=== PATIENT | male | born 1985 | race Caucasian/White ===

== ENCOUNTER 2016-10-04 05:13 | Inpatient (IN) | payer SELFPAY ==
[~2016-10-04] VITALS: Ht 182.9 cm; Wt 89.0 kg
[2016-10-04] MEDS ORDERED: VANCOMYCIN 1,700 MG in SODIUM CHLORIDE 0.9% 250 ML IV ONE (06:30)
[2016-10-04] MEDS ORDERED: VANCOMYCIN PMX 1GM/200ML 200 ML IV ONE ×2 (06:30→09:30)
[2016-10-04] MEDS ORDERED: AMPICILLIN/SULBACTAM 3 GM in SODIUM CHLORIDE 0.9% 100 ML IV ONE (06:30)
[2016-10-04] MEDS ORDERED: DIPH,PERTUSS(ACELL),TET VAC/PF 0.5 ML IM-VACC ONE ×2 (06:30→07:21)
[2016-10-04] MEDS ORDERED: SODIUM CHLORIDE FLUSH 10ML SYR IVF ONE (06:30)
[2016-10-04 06:39] LABS: HEMOGLOBIN 13.1 g/dL (13.7-18.0)
[2016-10-04 06:52] LABS: ASPARTATE AMINO TRANSFERASE 60 U/L (15-37); BLOOD UREA NITROGEN 15 mg/dL (7-18)
[2016-10-04] MEDS ORDERED: LORazepam 2 MG/ML, 1ML IVPush PRN (09:30)
[2016-10-04] MEDS ORDERED: ACETAMINOPHEN 325 MG TABLET PO PRN (09:30)
[2016-10-04] MEDS ORDERED: VANCOMYCIN PER PHARMACY MC PRN (09:30)
[2016-10-04] MEDS: SODIUM CHLORIDE 0.9% 1,000 ML IV SCH ×2 (10:09→16:19)
[2016-10-04 10:49] VITALS: BP 108/69
[2016-10-04] MEDS ORDERED: PHARMACOKINETIC MONITORING MC PRN (11:00)
[2016-10-04] MEDS ORDERED: PHARMACOKINETIC CONSULTATION MC ONE (11:00)
[2016-10-04] MEDS: MORPHINE SULFATE 4 MG/ML, 1ML IVPush PRN ×4 (11:25→21:35)
[2016-10-04] MEDS: NICOTINE 21 MG/24 HR PATCH.TD24 TD SCH (11:28)
[2016-10-04] MEDS: ENOXAPARIN 40 MG/0.4 ML SQ SCH (11:29)
[2016-10-04] MEDS: DIPHENHYDRAMINE 50 MG/ML, 1ML IVPush PRN ×2 (11:48→20:22)
[2016-10-04] MEDS: AMPICILLIN/SULBACTAM 3 GM in SODIUM CHLORIDE 0.9% 100 ML IV SCH ×2 (11:55→17:36)
[2016-10-04] MEDS ORDERED: GADOBUTROL 10 MMOL/10 ML PFS ONE (12:37)
[2016-10-04 14:36] VITALS: BP 134/74
[2016-10-04] MEDS: METHADONE 10 MG TABLET PO SCH ×2 (16:18→21:35)
[2016-10-04 18:48] VITALS: BP 114/67
[2016-10-04] MEDS: ONDANSETRON 2MG/ML, 2ML IVP PRN (20:21)
[2016-10-04] MEDS: VANCOMYCIN 1,700 MG in SODIUM CHLORIDE 0.9% 250 ML IV SCH (21:35)
[2016-10-04] MEDS ORDERED: VANCOMYCIN 1,700 MG in SODIUM CHLORIDE 0.9% 250 ML IV SCH (22:00)
[2016-10-05] MEDS: MORPHINE SULFATE 4 MG/ML, 1ML IVPush PRN ×6 (00:32→19:19)
[2016-10-05] MEDS: AMPICILLIN/SULBACTAM 3 GM in SODIUM CHLORIDE 0.9% 100 ML IV SCH ×4 (00:32→20:53)
[2016-10-05 01:17] VITALS: BP 119/70
[2016-10-05 04:11] LABS: HEMOGLOBIN 11.6 g/dL (13.7-18.0)
[2016-10-05 04:19] LABS: ASPARTATE AMINO TRANSFERASE 34 U/L (15-37); BLOOD UREA NITROGEN 12 mg/dL (7-18)
[2016-10-05 05:28] LABS: HIV 1&2 ANTIBODY SCREEN Nonreactive (Nonreactive); HIV-1 p24 ANTIGEN Nonreactive (Nonreactive)
[2016-10-05] MEDS: SODIUM CHLORIDE 0.9% 1,000 ML IV SCH ×2 (06:08→19:19)
[2016-10-05 07:31] VITALS: BP 125/77
[2016-10-05] MEDS: ENOXAPARIN 40 MG/0.4 ML SQ SCH ×2 (08:26→19:19)
[2016-10-05] MEDS: ONDANSETRON 2MG/ML, 2ML IVP PRN (08:31)
[2016-10-05] MEDS: NICOTINE 21 MG/24 HR PATCH.TD24 TD SCH (08:34)
[2016-10-05] MEDS: METHADONE 10 MG TABLET PO SCH ×3 (08:35→20:50)
[2016-10-05] MEDS ORDERED: MIDAZOLAM 1 MG/ML, 2ML ONE (08:54)
[2016-10-05] MEDS ORDERED: FENTANYL PF 250 MCG/5ML ONE (08:54)
[2016-10-05] MEDS ORDERED: PROPOFOL 10 MG/ML, 20ML ONE (09:12)
[2016-10-05] MEDS ORDERED: ONDANSETRON 2MG/ML, 2ML IVPush PRN (09:30)
[2016-10-05] MEDS ORDERED: OXYcodone 5 MG/5 ML ORAL.SOL UDC PO PRN (09:30)
[2016-10-05] MEDS ORDERED: FENTANYL PF 100 MCG/2ML ONE (09:44)
[2016-10-05] MEDS ORDERED: HYDROmorphone 2 MG/ML, 1ML ONE (09:44)
[2016-10-05] MEDS: FENTANYL PF 100 MCG/2ML IV PRN ×2 (09:45→09:56)
[2016-10-05] MEDS: HYDROmorphone 1 MG/ML, 1ML IV PRN ×4 (09:46→10:10)
[2016-10-05] MEDS ORDERED: OXYcodone 5 MG/5 ML ORAL.SOL UDC ONE (09:59)
[2016-10-05] MEDS: VANCOMYCIN 1,700 MG in SODIUM CHLORIDE 0.9% 250 ML IV SCH ×2 (11:17→22:03)
[2016-10-05 13:02] VITALS: BP 124/70
[2016-10-05] MEDS: HYDROcodone/APAP 5/325 TABLET PO PRN (17:57)
[2016-10-05 19:29] VITALS: BP 112/64
[2016-10-06] MEDS: AMPICILLIN/SULBACTAM 3 GM in SODIUM CHLORIDE 0.9% 100 ML IV SCH ×4 (02:32→20:37)
[2016-10-06 04:21] VITALS: BP 120/62
[2016-10-06] MEDS: MORPHINE SULFATE 4 MG/ML, 1ML IVPush PRN ×3 (04:33→19:09)
[2016-10-06] MEDS: ONDANSETRON 2MG/ML, 2ML IVP PRN ×2 (06:31→19:09)
[2016-10-06 07:36] VITALS: BP 121/75
[2016-10-06] MEDS: SODIUM CHLORIDE 0.9% 1,000 ML IV SCH ×2 (08:02→20:37)
[2016-10-06] MEDS: METHADONE 10 MG TABLET PO SCH ×3 (09:25→21:23)
[2016-10-06] MEDS: NICOTINE 21 MG/24 HR PATCH.TD24 TD SCH (09:26)
[2016-10-06] MEDS: VANCOMYCIN 1,700 MG in SODIUM CHLORIDE 0.9% 250 ML IV SCH ×2 (10:11→22:48)
[2016-10-06] MEDS: HYDROcodone/APAP 5/325 TABLET PO PRN (14:34)
[2016-10-06 15:15] VITALS: BP 122/68
[2016-10-06 19:20] VITALS: BP 111/63
[2016-10-06] MEDS: ENOXAPARIN 40 MG/0.4 ML SQ SCH (20:00)
[2016-10-07] MEDS: MORPHINE SULFATE 4 MG/ML, 1ML IVPush PRN ×4 (01:04→20:01)
[2016-10-07 01:08] VITALS: BP 115/68
[2016-10-07] MEDS: AMPICILLIN/SULBACTAM 3 GM in SODIUM CHLORIDE 0.9% 100 ML IV SCH ×4 (03:10→20:00)
[2016-10-07] MEDS: SODIUM CHLORIDE 0.9% 1,000 ML IV SCH ×2 (06:16→18:09)
[2016-10-07 07:35] VITALS: BP 109/69
[2016-10-07] MEDS: HYDROcodone/APAP 5/325 TABLET PO PRN ×3 (07:50→18:03)
[2016-10-07] MEDS: NICOTINE 21 MG/24 HR PATCH.TD24 TD SCH (08:51)
[2016-10-07] MEDS: METHADONE 10 MG TABLET PO SCH ×2 (10:08→16:54)
[2016-10-07] MEDS: VANCOMYCIN 1,700 MG in SODIUM CHLORIDE 0.9% 250 ML IV SCH ×2 (10:08→22:36)
[2016-10-07 13:23] VITALS: BP 123/72
[2016-10-07 19:04] VITALS: BP 119/70
[2016-10-07] MEDS: ENOXAPARIN 40 MG/0.4 ML SQ SCH (20:00)
[2016-10-08] MEDS: METHADONE 10 MG TABLET PO SCH ×2 (00:04→08:41)
[2016-10-08 00:19] VITALS: BP 117/67
[2016-10-08] MEDS: AMPICILLIN/SULBACTAM 3 GM in SODIUM CHLORIDE 0.9% 100 ML IV SCH ×4 (02:45→20:07)
[2016-10-08] MEDS: HYDROcodone/APAP 5/325 TABLET PO PRN ×4 (02:45→19:58)
[2016-10-08] MEDS: MORPHINE SULFATE 4 MG/ML, 1ML IVPush PRN ×2 (06:25→15:21)
[2016-10-08] MEDS: SODIUM CHLORIDE 0.9% 1,000 ML IV SCH ×2 (06:26→20:07)
[2016-10-08 06:59] VITALS: BP 112/67
[2016-10-08] MEDS: NICOTINE 21 MG/24 HR PATCH.TD24 TD SCH (08:42)
[2016-10-08] MEDS: VANCOMYCIN 1,700 MG in SODIUM CHLORIDE 0.9% 250 ML IV SCH ×2 (10:10→22:29)
[2016-10-08 13:20] VITALS: BP 119/69
[2016-10-08] MEDS: METHADONE 5 MG TABLET PO SCH (16:59)
[2016-10-08 19:18] VITALS: BP 129/75
[2016-10-08] MEDS: ENOXAPARIN 40 MG/0.4 ML SQ SCH (20:07)
[2016-10-08] MEDS: DIPHENHYDRAMINE 50 MG/ML, 1ML IVPush PRN (21:13)
[2016-10-09] MEDS: METHADONE 5 MG TABLET PO SCH ×3 (00:42→16:14)
[2016-10-09 00:51] VITALS: BP 109/67
[2016-10-09] MEDS: AMPICILLIN/SULBACTAM 3 GM in SODIUM CHLORIDE 0.9% 100 ML IV SCH ×4 (03:16→20:40)
[2016-10-09 08:01] VITALS: BP 106/60
[2016-10-09] MEDS: NICOTINE 21 MG/24 HR PATCH.TD24 TD SCH (08:11)
[2016-10-09] MEDS: SODIUM CHLORIDE 0.9% 1,000 ML IV SCH ×2 (08:11→22:32)
[2016-10-09] MEDS: HYDROcodone/APAP 5/325 TABLET PO PRN ×4 (08:11→22:32)
[2016-10-09] MEDS: ONDANSETRON 2MG/ML, 2ML IVP PRN ×2 (08:59→18:35)
[2016-10-09] MEDS: VANCOMYCIN 1,700 MG in SODIUM CHLORIDE 0.9% 250 ML IV SCH ×2 (10:49→22:32)
[2016-10-09 13:18] VITALS: BP 123/75
[2016-10-09] MEDS: METHOCARBAMOL 500 MG TABLET PO SCH (18:26)
[2016-10-09 19:26] VITALS: BP 122/69
[2016-10-09] MEDS: ENOXAPARIN 40 MG/0.4 ML SQ SCH (20:40)
[2016-10-09] MEDS: DIPHENHYDRAMINE 50 MG/ML, 1ML IVPush PRN (22:32)
[2016-10-10] MEDS: METHADONE 5 MG TABLET PO SCH ×2 (00:06→08:58)
[2016-10-10] MEDS: METHOCARBAMOL 500 MG TABLET PO SCH ×2 (00:06→08:58)
[2016-10-10] MEDS: AMPICILLIN/SULBACTAM 3 GM in SODIUM CHLORIDE 0.9% 100 ML IV SCH ×2 (03:11→08:57)
[2016-10-10 08:47] VITALS: BP 118/72
[2016-10-10] MEDS: NICOTINE 21 MG/24 HR PATCH.TD24 TD SCH (08:58)
[2016-10-11 15:06] LABS: HCV LOG10 3.117 (.); HEPATITIS C PCR QUANTITATION 1310 IU/mL (.)
== END 2016-10-10 10:13 | disposition left against medical advice (07) | DRG 579 ==
LOC: ED 08:20 → EDIP 08:22 → ED 08:32 → 3NE 10:29
PROVIDERS: ADMIT Hospitalist; ATTEND Internal Medicine
PROC: 02HV33Z Insertion of Infusion Device into Superior Vena Cava, Percutaneous Approach (ICD-10-PCS; principal; 2016-10-04)
PROC: B5181ZA Fluoroscopy of Superior Vena Cava using Low Osmolar Contrast, Guidance (ICD-10-PCS; 2016-10-04)
PROC: B548ZZA Ultrasonography of Superior Vena Cava, Guidance (ICD-10-PCS; 2016-10-04)
PROC: 0KBV0ZZ Excision of Right Foot Muscle, Open Approach (ICD-10-PCS; 2016-10-04)
DX: L03.115 Cellulitis of right lower limb (principal); E43 Unspecified severe protein-calorie malnutrition; E87.1 Hypo-osmolality and hyponatremia; L02.611 Cutaneous abscess of right foot; F11.23 Opioid dependence with withdrawal; Z53.21 Procedure and treatment not carried out due to patient leaving prior to being seen by health care provider; R74.0 Nonspecific elevation of levels of transaminase and lactic acid dehydrogenase [LDH]; F12.90 Cannabis use, unspecified, uncomplicated; B19.20 Unspecified viral hepatitis C without hepatic coma; Z23 Encounter for immunization; Z68.26 Body mass index [BMI] 26.0-26.9, adult; Z88.1 Allergy status to other antibiotic agents; Z72.0 Tobacco use
CPT/HCPCS: 36415; 36569; 76937; 77001; 80053; 80202; 83605; 83735; 84100; 84145; 85025; 85610; 86703; 86704; 86706; 86708; 86803; 87040; 87070; 87075; 87077; 87186; 87205; 87340; 87522; 87899; 87902; 90471; 90715; 93306; 96365; 96366; A9585; J0295; J1170; J1650; J2250; J2405; J2704; J3010; J3370; C1751; G0435; J1200; J2060; J7030; J7050

== ENCOUNTER 2016-12-14 01:50 | Emergency (ER) | payer SELFPAY ==
[~2016-12-14] VITALS: Ht 182.9 cm; Wt 86.3 kg
[2016-12-14 02:16] VITALS: BP 159/90
== END 2016-12-14 02:46 | disposition home or self-care (01) ==
LOC: ED 02:30
DX: L03.115 Cellulitis of right lower limb (principal)
CPT/HCPCS: 99283

== ENCOUNTER 2017-02-18 03:17 | Emergency (ER) | payer OTHER ==
[~2017-02-18] VITALS: Ht 182.9 cm; Wt 80.0 kg
[2017-02-18 03:21] VITALS: BP 116/74
== END 2017-02-18 04:45 | disposition home or self-care (01) ==
LOC: ED 04:37
DX: S94.91XA Injury of unspecified nerve at ankle and foot level, right leg, initial encounter (principal); F17.200 Nicotine dependence, unspecified, uncomplicated; Z88.1 Allergy status to other antibiotic agents; X58.XXXA Exposure to other specified factors, initial encounter; Y93.89 Activity, other specified; Y92.89 Other specified places as the place of occurrence of the external cause; Y99.8 Other external cause status
CPT/HCPCS: 99284

== ENCOUNTER 2017-02-18 12:26 | Emergency (ER) | payer OTHER ==
[~2017-02-18] VITALS: Ht 182.9 cm; Wt 77.7 kg
[2017-02-18 12:45] VITALS: BP 120/79
== END 2017-02-18 13:31 | disposition home or self-care (01) ==
LOC: ED 13:25
DX: G89.29 Other chronic pain (principal); M79.671 Pain in right foot; F11.10 Opioid abuse, uncomplicated
CPT/HCPCS: 99283

== ENCOUNTER 2017-05-11 20:12 | Inpatient (IN) | payer OTHER ==
[~2017-05-11] VITALS: Ht 182.9 cm; Wt 81.2 kg
[2017-05-11] MEDS ORDERED: KETOROLAC 30 MG/1 ML ONE (20:47)
[2017-05-11] MEDS ORDERED: ONDANSETRON 2MG/ML, 2ML ONE (20:47)
[2017-05-11] MEDS ORDERED: ONDANSETRON 2MG/ML, 2ML IVPush ONE (21:00)
[2017-05-11] MEDS ORDERED: KETOROLAC 30 MG/1 ML IVPush ONE (21:00)
[2017-05-11] MEDS ORDERED: DIPH,PERTUSS(ACELL),TET VAC/PF 0.5 ML IM-VACC ONE (21:04)
[2017-05-11 21:06] LABS: ASPARTATE AMINO TRANSFERASE 115 U/L (15-37); BLOOD UREA NITROGEN 10 mg/dL (7-18)
[2017-05-11 21:20] LABS: HEMATOCRIT 46.3 % (39.2-51.8); HEMOGLOBIN 15.7 g/dL (13.7-18.0); WHITE BLOOD COUNT 15.5 x10^3/uL (3.4-10)
[2017-05-11] MEDS ORDERED: RANI150T4 PO (21:54)
[2017-05-11] MEDS ORDERED: OLAN10TA9 PO (21:54)
[2017-05-11] MEDS ORDERED: PIPERACILLIN/TAZO/PMX 3.375GM 50 ML ONE (22:08)
[2017-05-11] MEDS ORDERED: SODIUM CHLORIDE 0.9% 1,000 ML IV ONE (22:14)
[2017-05-11] MEDS ORDERED: PIPERACILLIN/TAZO/PMX 3.375GM 50 ML IVPB ONE (22:30)
[2017-05-11] MEDS ORDERED: ONDANSETRON 2MG/ML, 2ML IVPush PRN (22:30)
[2017-05-11] MEDS ORDERED: MORPHINE SULFATE 4 MG/ML, 1ML IVPush PRN (22:30)
[2017-05-11] MEDS ORDERED: BISACODYL 10 MG SUPP PR PRN (23:00)
[2017-05-11 23:34] VITALS: BP 119/75
[2017-05-12] MEDS: morphine SULFATE 10 MG/ML, 1ML IVPush PRN ×7 (00:15→23:11)
[2017-05-12] MEDS: HEPARIN 5,000 UNITS/ML, 1ML SQ SCH ×2 (00:15→08:22)
[2017-05-12] MEDS: SODIUM CHLORIDE 0.9% 1,000 ML IV SCH ×4 (00:16→22:00)
[2017-05-12 02:58] VITALS: BP 107/70
[2017-05-12] MEDS: PIPERACILLIN/TAZO/PMX 3.375GM 50 ML IV SCH ×3 (03:48→16:00)
[2017-05-12 04:59] LABS: HEMATOCRIT 39.4 % (39.2-51.8); HEMOGLOBIN 13.6 g/dL (13.7-18.0); WHITE BLOOD COUNT 12.6 x10^3/uL (3.4-10)
[2017-05-12 05:08] LABS: BLOOD UREA NITROGEN 10 mg/dL (7-18)
[2017-05-12 05:11] LABS: ASPARTATE AMINO TRANSFERASE 158 U/L (15-37)
[2017-05-12 08:10] VITALS: BP 111/66
[2017-05-12] MEDS: ACETAMINOPHEN 325 MG TABLET PO PRN (11:43)
[2017-05-12] MEDS: DIPHENHYDRAMINE 50 MG/ML, 1ML IVPush PRN ×2 (12:38→20:58)
[2017-05-12 13:40] VITALS: BP 106/63
[2017-05-12] MEDS ORDERED: FENTANYL PF 100 MCG/2ML ONE ×4 (15:39→18:07)
[2017-05-12] MEDS ORDERED: MIDAZOLAM 1 MG/ML, 2ML ONE (15:39)
[2017-05-12] MEDS ORDERED: PROPOFOL 10 MG/ML, 20ML ONE (15:41)
[2017-05-12] MEDS ORDERED: ROCURONIUM 10 MG/ML,10ML ONE (15:41)
[2017-05-12] MEDS ORDERED: NEOSTIGMINE 1 MG/ML, 10ML ONE (16:06)
[2017-05-12] MEDS ORDERED: BUPIVACAINE/PF 0.5% ONE (16:17)
[2017-05-12] MEDS ORDERED: OXYcodone 5 MG/5 ML ORAL.SOL UDC PO PRN (16:30)
[2017-05-12] MEDS ORDERED: PROMETHAZINE 25 MG/ML, 1ML IV PRN (16:30)
[2017-05-12] MEDS ORDERED: ONDANSETRON 2MG/ML, 2ML IVPush PRN (16:30)
[2017-05-12] MEDS ORDERED: MEPERIDINE/PF 25MG/0.5ML IVPush PRN (16:30)
[2017-05-12] MEDS ORDERED: HYDROmorphone 1 MG/ML, 1ML IV PRN (16:30)
[2017-05-12] MEDS ORDERED: ACETAMINOPHEN 325 MG TABLET PO PRN (16:30)
[2017-05-12] MEDS ORDERED: PIPERACILLIN/TAZO/PMX 3.375GM 50 ML ONE (16:35)
[2017-05-12] MEDS ORDERED: GLYCOPYRROLATE 0.2MG/1ML, 5ML ONE (17:40)
[2017-05-12] MEDS ORDERED: ACETAMINOPHEN 650 MG/20.3 ML UDC ONE (18:07)
[2017-05-12] MEDS ORDERED: OXYcodone 5 MG/5 ML ORAL.SOL UDC ONE (18:08)
[2017-05-12] MEDS: FENTANYL PF 100 MCG/2ML IV PRN ×2 (18:10→18:20)
[2017-05-12] MEDS ORDERED: MEPERIDINE/PF 25MG/0.5ML ONE (18:21)
[2017-05-12] MEDS ORDERED: HYDROmorphone 1 MG/ML, 1ML ONE (18:21)
[2017-05-12 19:55] VITALS: BP 124/77
[2017-05-12 23:55] VITALS: BP 110/57
[2017-05-13] MEDS: morphine SULFATE 10 MG/ML, 1ML IVPush PRN ×8 (01:56→23:12)
[2017-05-13 02:20] VITALS: BP 104/66
[2017-05-13] MEDS: SODIUM CHLORIDE 0.9% 1,000 ML IV SCH ×2 (06:19→21:38)
[2017-05-13 07:49] LABS: BLOOD UREA NITROGEN 8 mg/dL (7-18)
[2017-05-13 07:52] LABS: ASPARTATE AMINO TRANSFERASE 54 U/L (15-37); HEMATOCRIT 35.4 % (39.2-51.8); HEMOGLOBIN 11.9 g/dL (13.7-18.0); WHITE BLOOD COUNT 10.6 x10^3/uL (3.4-10)
[2017-05-13 07:57] VITALS: BP 124/72
[2017-05-13] MEDS: ACETAMINOPHEN 325 MG TABLET PO PRN ×2 (08:43→23:12)
[2017-05-13 14:48] VITALS: BP 117/78
[2017-05-13 18:55] VITALS: BP 152/73
[2017-05-14 01:43] VITALS: BP 114/71
[2017-05-14] MEDS: morphine SULFATE 10 MG/ML, 1ML IVPush PRN ×3 (03:04→19:59)
[2017-05-14 05:58] LABS: HEMATOCRIT 38.1 % (39.2-51.8); HEMOGLOBIN 12.7 g/dL (13.7-18.0); WHITE BLOOD COUNT 9.8 x10^3/uL (3.4-10)
[2017-05-14 06:07] LABS: BLOOD UREA NITROGEN 4 mg/dL (7-18)
[2017-05-14 06:10] LABS: ASPARTATE AMINO TRANSFERASE 45 U/L (15-37)
[2017-05-14 06:43] VITALS: BP 116/74
[2017-05-14] MEDS: ACETAMINOPHEN 325 MG TABLET PO PRN ×2 (07:32→17:18)
[2017-05-14] MEDS ORDERED: BISACODYL 5 MG EC TABLET PO PRN (09:30)
[2017-05-14] MEDS: SODIUM CHLORIDE 0.9% 1,000 ML IV SCH (11:24)
[2017-05-14 14:16] VITALS: BP 115/74
[2017-05-14 19:44] VITALS: BP 117/79
[2017-05-15 02:00] VITALS: BP 119/75
[2017-05-15] MEDS: SODIUM CHLORIDE 0.9% 1,000 ML IV SCH ×2 (02:30→16:16)
[2017-05-15] MEDS: morphine SULFATE 10 MG/ML, 1ML IVPush PRN ×2 (03:33→05:59)
[2017-05-15 04:55] LABS: HEMATOCRIT 39.4 % (39.2-51.8); HEMOGLOBIN 13.1 g/dL (13.7-18.0); WHITE BLOOD COUNT 8.1 x10^3/uL (3.4-10)
[2017-05-15 05:02] LABS: BLOOD UREA NITROGEN 7 mg/dL (7-18)
[2017-05-15 05:10] LABS: ASPARTATE AMINO TRANSFERASE 43 U/L (15-37)
[2017-05-15 07:50] VITALS: BP 123/71
[2017-05-15] MEDS: ACETAMINOPHEN 325 MG TABLET PO PRN ×3 (10:01→22:07)
[2017-05-15] MEDS: DIPHENHYDRAMINE 50 MG/ML, 1ML IVPush PRN ×4 (10:01→22:07)
[2017-05-15 14:47] VITALS: BP 130/84
[2017-05-15 20:30] VITALS: BP 133/90
[2017-05-16 02:53] VITALS: BP 140/87
[2017-05-16] MEDS: ACETAMINOPHEN 325 MG TABLET PO PRN ×2 (03:57→08:19)
[2017-05-16] MEDS: DIPHENHYDRAMINE 50 MG/ML, 1ML IVPush PRN ×3 (03:57→16:18)
[2017-05-16] MEDS: SODIUM CHLORIDE 0.9% 1,000 ML IV SCH ×2 (04:01→17:32)
[2017-05-16 04:31] LABS: HEMATOCRIT 39.6 % (39.2-51.8); HEMOGLOBIN 13.6 g/dL (13.7-18.0); WHITE BLOOD COUNT 10.5 x10^3/uL (3.4-10)
[2017-05-16 04:44] LABS: BLOOD UREA NITROGEN 9 mg/dL (7-18)
[2017-05-16 07:30] VITALS: BP 148/89
[2017-05-16] MEDS: morphine SULFATE 10 MG/ML, 1ML IVPush PRN ×6 (10:30→22:28)
[2017-05-16 12:54] VITALS: BP 130/91
[2017-05-16] MEDS: ONDANSETRON 2MG/ML, 2ML IVPush PRN (17:01)
[2017-05-16 20:04] VITALS: BP 146/91
[2017-05-16] MEDS ORDERED: BISACODYL 10 MG SUPP PR PRN (20:30)
[2017-05-17] MEDS: morphine SULFATE 10 MG/ML, 1ML IVPush PRN ×5 (00:34→09:54)
[2017-05-17] MEDS: DIPHENHYDRAMINE 50 MG/ML, 1ML IVPush PRN (00:37)
[2017-05-17 02:08] VITALS: BP 141/88
[2017-05-17 04:36] LABS: HEMATOCRIT 44.6 % (39.2-51.8); WHITE BLOOD COUNT 27.1 x10^3/uL (3.4-10)
[2017-05-17 04:47] LABS: BLOOD UREA NITROGEN 13 mg/dL (7-18)
[2017-05-17 04:50] LABS: ASPARTATE AMINO TRANSFERASE 34 U/L (15-37)
[2017-05-17 07:06] VITALS: BP 135/87
[2017-05-17] MEDS: SODIUM CHLORIDE 0.9% 1,000 ML IV SCH ×2 (07:55→23:23)
[2017-05-17] MEDS ORDERED: ROCURONIUM 10 MG/ML,10ML ONE (10:56)
[2017-05-17] MEDS ORDERED: PROPOFOL 10 MG/ML, 20ML ONE (10:56)
[2017-05-17] MEDS ORDERED: SUCCINYLCHOLINE 20 MG/ML, 10ML ONE (10:56)
[2017-05-17] MEDS ORDERED: FENTANYL PF 100 MCG/2ML ONE ×2 (10:56→11:12)
[2017-05-17] MEDS ORDERED: MIDAZOLAM 1 MG/ML, 2ML ONE (10:56)
[2017-05-17] MEDS ORDERED: ONDANSETRON 2MG/ML, 2ML ONE ×2 (10:58)
[2017-05-17] MEDS ORDERED: DEXAMETHASONE 4 MG/ML, 1ML ONE ×2 (10:58)
[2017-05-17] MEDS ORDERED: LIDOCAINE GEL 2%, 5ML ONE (10:59)
[2017-05-17] MEDS ORDERED: METRONIDAZOLE PMX 500MG/100ML 100 ML ONE (11:08)
[2017-05-17] MEDS ORDERED: CIPROFLOXACIN/PMX 400MG/200ML 200 ML ONE (11:08)
[2017-05-17] MEDS ORDERED: LABETALOL 5MG/ML, 20ML IV PRN (11:30)
[2017-05-17] MEDS ORDERED: HYDROmorphone 1 MG/ML, 1ML IV PRN (11:30)
[2017-05-17] MEDS ORDERED: ONDANSETRON 2MG/ML, 2ML IVPush PRN (11:30)
[2017-05-17] MEDS ORDERED: hydrALAzine 20 MG/ML, 1ML IV PRN (11:30)
[2017-05-17] MEDS ORDERED: ALBUTEROL SULFATE 2.5 MG/3 ML NPPB PRN (11:30)
[2017-05-17] MEDS ORDERED: PROMETHAZINE 25 MG/ML, 1ML IV PRN (11:30)
[2017-05-17] MEDS ORDERED: OXYcodone 5 MG/5 ML ORAL.SOL UDC PO PRN (11:30)
[2017-05-17] MEDS ORDERED: FENTANYL PF 100 MCG/2ML IV PRN (11:30)
[2017-05-17] MEDS ORDERED: MEPERIDINE/PF 25MG/0.5ML IVPush PRN (11:30)
[2017-05-17] MEDS ORDERED: MIDAZOLAM 1 MG/ML, 2ML IV PRN (11:30)
[2017-05-17] MEDS ORDERED: KETOROLAC 30 MG/1 ML ONE (11:32)
[2017-05-17] MEDS ORDERED: OMNIPAQUE 350 MG/ML, 50 ML BOTTLE ONE (11:53)
[2017-05-17] MEDS ORDERED: LACTATED RINGERS 1,000 ML IVBOLUS ONE (12:30)
[2017-05-17 13:13] VITALS: BP 160/89
[2017-05-17] MEDS: ACETAMINOPHEN 325 MG TABLET PO PRN (17:28)
[2017-05-17 19:26] VITALS: BP 132/64
[2017-05-17] MEDS: OXYcodone IR 5MG TABLET PO PRN (20:24)
[2017-05-18 01:24] VITALS: BP 126/76
[2017-05-18] MEDS: OXYcodone IR 5MG TABLET PO PRN ×2 (02:26→11:18)
[2017-05-18] MEDS: HYDROmorphone 1 MG/ML, 1ML IV PRN ×7 (05:21→23:42)
[2017-05-18 05:53] LABS: BLOOD UREA NITROGEN 25 mg/dL (7-18)
[2017-05-18 05:59] LABS: HEMATOCRIT 36.5 % (39.2-51.8); HEMOGLOBIN 12.2 g/dL (13.7-18.0); WHITE BLOOD COUNT 28.9 x10^3/uL (3.4-10)
[2017-05-18 08:05] VITALS: BP 116/70
[2017-05-18] MEDS: METRONIDAZOLE PMX 500MG/100ML 100 ML IV SCH ×2 (10:16→17:41)
[2017-05-18] MEDS: SODIUM CHLORIDE 0.9% 1,000 ML IV SCH (10:16)
[2017-05-18] MEDS: CIPROFLOXACIN/PMX 400MG/200ML 200 ML IV SCH ×2 (11:22→21:44)
[2017-05-18] MEDS ORDERED: HYDROmorphone 1 MG/ML, 1ML IV PRN (12:00)
[2017-05-18 14:32] VITALS: BP 118/73
[2017-05-18 19:17] VITALS: BP 114/66
[2017-05-19 00:58] VITALS: BP 107/60
[2017-05-19] MEDS: SODIUM CHLORIDE 0.9% 1,000 ML IV SCH ×2 (01:01→09:24)
[2017-05-19] MEDS: HYDROmorphone 1 MG/ML, 1ML IV PRN ×11 (01:42→22:41)
[2017-05-19] MEDS: METRONIDAZOLE PMX 500MG/100ML 100 ML IV SCH ×3 (02:25→18:12)
[2017-05-19] MEDS: OXYcodone IR 5MG TABLET PO PRN (04:47)
[2017-05-19] MEDS ORDERED: BUPIVACAINE/PF 0.5% ONE (06:34)
[2017-05-19] MEDS ORDERED: EPINEPHRINE 1 MG/ML, 1ML ONE (06:34)
[2017-05-19] MEDS ORDERED: METHADONE 5 MG TABLET PO SCH (07:00)
[2017-05-19 07:08] VITALS: BP 122/72
[2017-05-19 07:36] LABS: HEMATOCRIT 31.8 % (39.2-51.8); HEMOGLOBIN 10.6 g/dL (13.7-18.0); WHITE BLOOD COUNT 20.9 x10^3/uL (3.4-10)
[2017-05-19 07:47] LABS: BLOOD UREA NITROGEN 20 mg/dL (7-18)
[2017-05-19] MEDS: CIPROFLOXACIN/PMX 400MG/200ML 200 ML IV SCH ×2 (10:57→22:12)
[2017-05-19 12:54] VITALS: BP 126/84
[2017-05-19] MEDS ORDERED: FENTANYL PF 250 MCG/5ML ONE ×2 (14:37→15:01)
[2017-05-19] MEDS ORDERED: MIDAZOLAM 1 MG/ML, 2ML ONE (14:37)
[2017-05-19] MEDS ORDERED: LORazepam 2 MG/ML, 1ML IVPush PRN (15:30)
[2017-05-19] MEDS ORDERED: ONDANSETRON 2MG/ML, 2ML IVPush PRN (15:30)
[2017-05-19] MEDS ORDERED: EPHEDRINE 50 MG/ML, 1ML IVPush PRN (15:30)
[2017-05-19] MEDS ORDERED: MIDAZOLAM 1 MG/ML, 2ML IV PRN (15:30)
[2017-05-19] MEDS ORDERED: LABETALOL 5MG/ML, 20ML IV PRN (15:30)
[2017-05-19] MEDS ORDERED: PROMETHAZINE 25 MG/ML, 1ML IV PRN (15:30)
[2017-05-19] MEDS ORDERED: OXYcodone 5 MG/5 ML ORAL.SOL UDC PO PRN (15:30)
[2017-05-19] MEDS ORDERED: FENTANYL PF 100 MCG/2ML IV PRN (15:30)
[2017-05-19] MEDS ORDERED: FENTANYL PF 100 MCG/2ML ONE (15:54)
[2017-05-19] MEDS ORDERED: HYDROmorphone 2 MG/ML, 1ML ONE (15:54)
[2017-05-19] MEDS ORDERED: METHADONE 10 MG TABLET ONE (17:47)
[2017-05-19] MEDS: METHADONE 10 MG TABLET PO SCH (18:12)
[2017-05-19 19:21] VITALS: BP 127/77
[2017-05-19 21:05] VITALS: BP 134/77
[2017-05-20] MEDS: METHADONE 10 MG TABLET PO SCH ×4 (01:10→18:36)
[2017-05-20] MEDS: SODIUM CHLORIDE 0.9% 1,000 ML IV SCH ×2 (01:12→13:28)
[2017-05-20] MEDS: METRONIDAZOLE PMX 500MG/100ML 100 ML IV SCH ×3 (02:05→19:37)
[2017-05-20] MEDS: HYDROmorphone 1 MG/ML, 1ML IV PRN ×7 (02:10→21:52)
[2017-05-20 02:15] VITALS: BP 122/77
[2017-05-20 06:24] LABS: HEMATOCRIT 27.4 % (39.2-51.8); HEMOGLOBIN 9.2 g/dL (13.7-18.0); WHITE BLOOD COUNT 17.4 x10^3/uL (3.4-10)
[2017-05-20 06:37] LABS: BLOOD UREA NITROGEN 12 mg/dL (7-18)
[2017-05-20 06:46] VITALS: BP 118/68
[2017-05-20] MEDS ORDERED: VANCOMYCIN PER PHARMACY MC PRN (11:00)
[2017-05-20] MEDS ORDERED: PHARMACOKINETIC MONITORING MC PRN (11:30)
[2017-05-20] MEDS ORDERED: PHARMACOKINETIC CONSULTATION MC ONE (11:30)
[2017-05-20 13:05] VITALS: BP 124/73
[2017-05-20] MEDS: CIPROFLOXACIN/PMX 400MG/200ML 200 ML IV SCH ×2 (13:28→21:51)
[2017-05-20] MEDS: VANCOMYCIN 1,600 MG in SODIUM CHLORIDE 0.9% 250 ML IV SCH (14:42)
[2017-05-20] MEDS: DIPHENHYDRAMINE 50 MG/ML, 1ML IVPush PRN (17:15)
[2017-05-20 19:10] VITALS: BP 114/67
[2017-05-21] MEDS ORDERED: HYDROCORTISONE CRM 1%, 30GM TP PRN (00:30)
[2017-05-21] MEDS: HYDROmorphone 1 MG/ML, 1ML IV PRN ×7 (00:54→20:55)
[2017-05-21] MEDS: METHADONE 10 MG TABLET PO SCH ×4 (01:38→19:59)
[2017-05-21] MEDS: DIPHENHYDRAMINE 50 MG/ML, 1ML IVPush PRN ×2 (02:32→15:42)
[2017-05-21] MEDS: VANCOMYCIN 1,600 MG in SODIUM CHLORIDE 0.9% 250 ML IV SCH (02:32)
[2017-05-21] MEDS: SODIUM CHLORIDE 0.9% 1,000 ML IV SCH ×3 (02:33→20:55)
[2017-05-21 03:45] VITALS: BP 112/67
[2017-05-21] MEDS: METRONIDAZOLE PMX 500MG/100ML 100 ML IV SCH ×3 (04:31→20:54)
[2017-05-21 05:06] LABS: BLOOD UREA NITROGEN 11 mg/dL (7-18)
[2017-05-21 05:14] LABS: ASPARTATE AMINO TRANSFERASE 19 U/L (15-37)
[2017-05-21 05:18] LABS: HEMATOCRIT 27.6 % (39.2-51.8); HEMOGLOBIN 9.4 g/dL (13.7-18.0)
[2017-05-21 06:53] VITALS: BP 123/78
[2017-05-21] MEDS: CIPROFLOXACIN/PMX 400MG/200ML 200 ML IV SCH ×2 (10:06→21:55)
[2017-05-21] MEDS: DOCUSATE 100 MG CAPSULE PO SCH ×2 (11:30→19:59)
[2017-05-21] MEDS: LINEZOLID PMX 600MG/300ML 300 ML IV SCH (12:10)
[2017-05-21 14:31] VITALS: BP 128/82
[2017-05-21 19:02] VITALS: BP 142/81
[2017-05-22] MEDS: LINEZOLID PMX 600MG/300ML 300 ML IV SCH ×2 (00:06→18:40)
[2017-05-22] MEDS: HYDROmorphone 1 MG/ML, 1ML IV PRN ×6 (00:06→22:25)
[2017-05-22] MEDS: METHADONE 10 MG TABLET PO SCH ×4 (01:23→21:08)
[2017-05-22 01:45] VITALS: BP 119/63
[2017-05-22 05:47] LABS: HEMATOCRIT 32.1 % (39.2-51.8); HEMOGLOBIN 10.5 g/dL (13.7-18.0); WHITE BLOOD COUNT 20.4 x10^3/uL (3.4-10)
[2017-05-22] MEDS: METRONIDAZOLE PMX 500MG/100ML 100 ML IV SCH (05:49)
[2017-05-22 05:58] LABS: BLOOD UREA NITROGEN 6 mg/dL (7-18)
[2017-05-22 06:01] LABS: ASPARTATE AMINO TRANSFERASE 24 U/L (15-37)
[2017-05-22 06:46] VITALS: BP 122/69
[2017-05-22] MEDS: DOCUSATE 100 MG CAPSULE PO SCH ×2 (09:39→22:25)
[2017-05-22] MEDS: CIPROFLOXACIN/PMX 400MG/200ML 200 ML IV SCH (10:35)
[2017-05-22] MEDS ORDERED: BISACODYL 10 MG SUPP PR ONE (11:30)
[2017-05-22 12:51] VITALS: BP 116/74
[2017-05-22] MEDS ORDERED: MEROPENEM 1 GM in SODIUM CHLORIDE 0.9% 100 ML IV SCH (13:30)
[2017-05-22] MEDS ORDERED: LIDOCAINE 2%, 20ML ONE (14:29)
[2017-05-22] MEDS: OXYcodone IR 5MG TABLET PO PRN (14:40)
[2017-05-22 16:11] LABS: DILUTION 1
[2017-05-22] MEDS ORDERED: PINK LADY ENEMA 1,000 ML PR ONE (16:30)
[2017-05-22] MEDS: ENOXAPARIN 40 MG/0.4 ML SQ SCH (18:54)
[2017-05-22 19:48] VITALS: BP 109/68
[2017-05-22] MEDS: MEROPENEM 1 GM in SODIUM CHLORIDE 0.9% 50 ML IV SCH (21:00)
[2017-05-23] MEDS: SODIUM CHLORIDE 0.9% 1,000 ML IV SCH ×2 (00:09→17:27)
[2017-05-23] MEDS: METHADONE 10 MG TABLET PO SCH ×4 (01:52→20:25)
[2017-05-23 02:03] VITALS: BP 108/59
[2017-05-23] MEDS: MEROPENEM 1 GM in SODIUM CHLORIDE 0.9% 50 ML IV SCH ×3 (05:00→20:25)
[2017-05-23] MEDS: HYDROmorphone 1 MG/ML, 1ML IV PRN ×5 (05:23→22:41)
[2017-05-23 05:32] LABS: HEMOGLOBIN 10.4 g/dL (13.7-18.0); WHITE BLOOD COUNT 22.4 x10^3/uL (3.4-10)
[2017-05-23 05:39] LABS: BLOOD UREA NITROGEN 6 mg/dL (7-18)
[2017-05-23 05:41] LABS: ASPARTATE AMINO TRANSFERASE 34 U/L (15-37)
[2017-05-23] MEDS: LINEZOLID PMX 600MG/300ML 300 ML IV SCH (06:18)
[2017-05-23 07:37] VITALS: BP 103/64
[2017-05-23] MEDS: DOCUSATE 100 MG CAPSULE PO SCH ×2 (09:36→20:25)
[2017-05-23] MEDS ORDERED: HEPATITIS B VACCINE/PF 20MCG/ML INJ IM-VACC ONE (12:00)
[2017-05-23] MEDS ORDERED: HEPATITIS A VACCINE 1,440 UNITS/ML IM-VACC ONE (12:00)
[2017-05-23 12:37] LABS: HIV 1&2 ANTIBODY SCREEN Nonreactive (Nonreactive); HIV-1 p24 ANTIGEN Nonreactive (Nonreactive)
[2017-05-23] MEDS: ENOXAPARIN 40 MG/0.4 ML SQ SCH (13:40)
[2017-05-23 14:06] VITALS: BP 117/74
[2017-05-23] MEDS: DAPTOMYCIN 320 MG in SODIUM CHLORIDE 0.9% 100 ML IV SCH (18:44)
[2017-05-23 19:51] VITALS: BP 122/71
[2017-05-24 01:25] VITALS: BP 113/70
[2017-05-24] MEDS: SODIUM CHLORIDE 0.9% 1,000 ML IV SCH ×2 (01:34→11:38)
[2017-05-24] MEDS: METHADONE 10 MG TABLET PO SCH ×4 (01:34→19:44)
[2017-05-24] MEDS: MEROPENEM 1 GM in SODIUM CHLORIDE 0.9% 50 ML IV SCH ×3 (05:10→21:08)
[2017-05-24] MEDS: DIPHENHYDRAMINE 50 MG/ML, 1ML IVPush PRN ×2 (05:20→21:09)
[2017-05-24] MEDS: HYDROmorphone 1 MG/ML, 1ML IV PRN ×5 (05:20→21:09)
[2017-05-24 05:41] LABS: HEMATOCRIT 31.3 % (39.2-51.8); HEMOGLOBIN 10.5 g/dL (13.7-18.0)
[2017-05-24 06:12] LABS: DIFF TOTAL CELLS COUNTED 100 CELL DIFF
[2017-05-24 06:14] LABS: VERIFY COUNTS? YES
[2017-05-24 06:15] LABS: LARGE PLATELETS 1+
[2017-05-24 07:25] VITALS: BP 125/74
[2017-05-24] MEDS: DOCUSATE 100 MG CAPSULE PO SCH (08:33)
[2017-05-24] MEDS: ENOXAPARIN 40 MG/0.4 ML SQ SCH (11:26)
[2017-05-24] MEDS: SENNA/DOCUSATE TABLET PO SCH (11:27)
[2017-05-24 14:49] VITALS: BP 118/70
[2017-05-24] MEDS: DAPTOMYCIN 320 MG in SODIUM CHLORIDE 0.9% 100 ML IV SCH (17:42)
[2017-05-24 19:41] VITALS: BP 124/73
[2017-05-25] MEDS: SODIUM CHLORIDE 0.9% 1,000 ML IV SCH ×2 (00:05→11:30)
[2017-05-25] MEDS: HYDROmorphone 1 MG/ML, 1ML IV PRN ×6 (02:02→16:59)
[2017-05-25] MEDS: METHADONE 10 MG TABLET PO SCH ×3 (02:03→13:49)
[2017-05-25 02:05] VITALS: BP 122/71
[2017-05-25] MEDS: MEROPENEM 1 GM in SODIUM CHLORIDE 0.9% 50 ML IV SCH ×3 (04:30→19:48)
[2017-05-25 05:16] LABS: HEMATOCRIT 30.2 % (39.2-51.8); HEMOGLOBIN 10.2 g/dL (13.7-18.0); WHITE BLOOD COUNT 15.3 x10^3/uL (3.4-10)
[2017-05-25 05:29] LABS: BLOOD UREA NITROGEN 6 mg/dL (7-18)
[2017-05-25 05:57] LABS: DIFF TOTAL CELLS COUNTED 100 CELL DIFF
[2017-05-25 06:00] LABS: VERIFY COUNTS? YES
[2017-05-25 06:01] LABS: LARGE PLATELETS 1+
[2017-05-25 07:55] VITALS: BP 109/69
[2017-05-25] MEDS: DIPHENHYDRAMINE 50 MG/ML, 1ML IVPush PRN ×2 (08:47→16:59)
[2017-05-25] MEDS: POLYETHYLENE GLYCOL 17 GM PACKET PO PRN (08:48)
[2017-05-25] MEDS: SENNA/DOCUSATE TABLET PO SCH (08:48)
[2017-05-25] MEDS: ENOXAPARIN 40 MG/0.4 ML SQ SCH (11:30)
[2017-05-25 13:55] VITALS: BP 121/73
[2017-05-25] MEDS: DAPTOMYCIN 320 MG in SODIUM CHLORIDE 0.9% 100 ML IV SCH (18:24)
[2017-05-25 19:15] VITALS: BP 114/68
[2017-05-25] MEDS: METOCLOPRAMIDE 5 MG/ML, 2ML IVPush SCH (19:48)
[2017-05-26] MEDS: DIPHENHYDRAMINE 50 MG/ML, 1ML IVPush PRN ×3 (01:07→20:24)
[2017-05-26] MEDS: METOCLOPRAMIDE 5 MG/ML, 2ML IVPush SCH ×4 (01:07→20:14)
[2017-05-26] MEDS: METHADONE 10 MG TABLET PO SCH ×4 (01:07→20:10)
[2017-05-26 01:32] VITALS: BP 118/67
[2017-05-26] MEDS: OXYcodone IR 5MG TABLET PO PRN ×3 (04:40→16:48)
[2017-05-26] MEDS: MEROPENEM 1 GM in SODIUM CHLORIDE 0.9% 50 ML IV SCH ×3 (04:40→21:00)
[2017-05-26 05:06] LABS: HEMATOCRIT 31.9 % (39.2-51.8); HEMOGLOBIN 10.5 g/dL (13.7-18.0); WHITE BLOOD COUNT 16.1 x10^3/uL (3.4-10)
[2017-05-26 05:47] LABS: DIFF TOTAL CELLS COUNTED 100 CELL DIFF
[2017-05-26 05:49] LABS: VERIFY COUNTS? YES
[2017-05-26 05:50] LABS: POLYCHROMASIA 1+
[2017-05-26] MEDS: SENNA/DOCUSATE TABLET PO SCH (07:21)
[2017-05-26 07:57] VITALS: BP 114/73
[2017-05-26] MEDS: ENOXAPARIN 40 MG/0.4 ML SQ SCH (10:43)
[2017-05-26 13:24] VITALS: BP 115/69
[2017-05-26 15:06] LABS: HEPATITIS C PCR QUANTITATION 1800000 IU/mL (.)
[2017-05-26] MEDS: ONDANSETRON 2MG/ML, 2ML IVPush PRN (16:48)
[2017-05-26] MEDS ORDERED: OMNIPAQUE 350 MG/ML, 100ML BOTTLE ONE (17:17)
[2017-05-26] MEDS: DAPTOMYCIN 320 MG in SODIUM CHLORIDE 0.9% 100 ML IV SCH (20:10)
[2017-05-26 20:27] VITALS: BP 102/64
[2017-05-27 03:12] VITALS: BP 111/69
[2017-05-27] MEDS: OXYcodone IR 5MG TABLET PO PRN ×3 (03:12→17:31)
[2017-05-27] MEDS: METHADONE 10 MG TABLET PO SCH ×4 (03:13→22:50)
[2017-05-27] MEDS: METOCLOPRAMIDE 5 MG/ML, 2ML IVPush SCH ×4 (03:13→22:51)
[2017-05-27] MEDS: MEROPENEM 1 GM in SODIUM CHLORIDE 0.9% 50 ML IV SCH ×2 (05:37→14:17)
[2017-05-27] MEDS: DIPHENHYDRAMINE 50 MG/ML, 1ML IVPush PRN ×3 (05:37→20:23)
[2017-05-27 06:08] LABS: HEMATOCRIT 30.9 % (39.2-51.8); HEMOGLOBIN 10.2 g/dL (13.7-18.0)
[2017-05-27 06:23] LABS: BLOOD UREA NITROGEN 14 mg/dL (7-18)
[2017-05-27 06:28] LABS: ASPARTATE AMINO TRANSFERASE 23 U/L (15-37)
[2017-05-27 07:30] VITALS: BP 108/63
[2017-05-27] MEDS: POLYETHYLENE GLYCOL 17 GM PACKET PO PRN (10:29)
[2017-05-27] MEDS: SENNA/DOCUSATE TABLET PO SCH (10:29)
[2017-05-27] MEDS: ENOXAPARIN 40 MG/0.4 ML SQ SCH (11:20)
[2017-05-27 14:00] VITALS: BP 130/80
[2017-05-27 20:21] VITALS: BP 107/69
[2017-05-27] MEDS: DAPTOMYCIN 320 MG in SODIUM CHLORIDE 0.9% 100 ML IV SCH (20:24)
[2017-05-27] MEDS: MEROPENEM 1 GM in SODIUM CHLORIDE 0.9% 100 ML IV SCH (22:51)
[2017-05-28 00:46] VITALS: BP 108/67
[2017-05-28] MEDS: OXYcodone IR 5MG TABLET PO PRN ×4 (00:49→18:05)
[2017-05-28] MEDS: METHADONE 10 MG TABLET PO SCH ×4 (04:46→22:56)
[2017-05-28] MEDS: METOCLOPRAMIDE 5 MG/ML, 2ML IVPush SCH ×4 (04:47→22:57)
[2017-05-28] MEDS: MEROPENEM 1 GM in SODIUM CHLORIDE 0.9% 100 ML IV SCH ×3 (06:39→22:57)
[2017-05-28 06:48] VITALS: BP 112/71
[2017-05-28] MEDS: ONDANSETRON 2MG/ML, 2ML IVPush PRN (11:00)
[2017-05-28] MEDS: DIPHENHYDRAMINE 50 MG/ML, 1ML IVPush PRN ×2 (11:01→18:06)
[2017-05-28] MEDS: SENNA/DOCUSATE TABLET PO SCH (11:01)
[2017-05-28] MEDS: ENOXAPARIN 40 MG/0.4 ML SQ SCH (11:01)
[2017-05-28 14:21] VITALS: BP 107/70
[2017-05-28 19:45] VITALS: BP 106/66
[2017-05-28] MEDS: DAPTOMYCIN 320 MG in SODIUM CHLORIDE 0.9% 100 ML IV SCH (20:35)
[2017-05-29] VITALS (7 sets, daily range): BP systolic 95–110; BP diastolic 54–80
[2017-05-29] MEDS ORDERED: DIPHENHYDRAMINE 25 MG CAPSULE ONE (00:05)
[2017-05-29] MEDS: DIPHENHYDRAMINE 25 MG CAPSULE PO PRN ×2 (00:07→06:11)
[2017-05-29] MEDS: OXYcodone IR 5MG TABLET PO PRN ×4 (00:07→21:42)
[2017-05-29] MEDS: METOCLOPRAMIDE 5 MG/ML, 2ML IVPush SCH ×4 (04:33→22:42)
[2017-05-29] MEDS: METHADONE 10 MG TABLET PO SCH ×4 (04:33→22:42)
[2017-05-29] MEDS: MEROPENEM 1 GM in SODIUM CHLORIDE 0.9% 100 ML IV SCH ×3 (08:53→22:41)
[2017-05-29] MEDS: ONDANSETRON 2MG/ML, 2ML IVPush PRN ×2 (08:54→22:42)
[2017-05-29] MEDS: POLYETHYLENE GLYCOL 17 GM PACKET PO PRN (08:54)
[2017-05-29] MEDS: LORazepam 2 MG/ML, 1ML IVPush PRN ×3 (08:56→22:40)
[2017-05-29] MEDS: SENNA/DOCUSATE TABLET PO SCH (08:58)
[2017-05-29] MEDS: DIPHENHYDRAMINE 50 MG/ML, 1ML IVPush PRN ×2 (10:48→21:42)
[2017-05-29] MEDS: ENOXAPARIN 40 MG/0.4 ML SQ SCH (10:49)
[2017-05-29] MEDS: DAPTOMYCIN 320 MG in SODIUM CHLORIDE 0.9% 100 ML IV SCH (20:00)
[2017-05-30 01:51] VITALS: BP 99/60
[2017-05-30] MEDS: METHADONE 10 MG TABLET PO SCH ×3 (04:11→18:47)
[2017-05-30] MEDS: METOCLOPRAMIDE 5 MG/ML, 2ML IVPush SCH ×4 (04:12→23:21)
[2017-05-30 04:39] LABS: HEMATOCRIT 27.4 % (39.2-51.8); HEMOGLOBIN 9.3 g/dL (13.7-18.0); WHITE BLOOD COUNT 8.4 x10^3/uL (3.4-10)
[2017-05-30 04:50] LABS: BLOOD UREA NITROGEN 13 mg/dL (7-18)
[2017-05-30] MEDS: MEROPENEM 1 GM in SODIUM CHLORIDE 0.9% 100 ML IV SCH ×3 (06:40→23:21)
[2017-05-30] MEDS: OXYcodone IR 5MG TABLET PO PRN ×3 (06:47→21:44)
[2017-05-30] MEDS: DIPHENHYDRAMINE 50 MG/ML, 1ML IVPush PRN ×4 (06:47→21:44)
[2017-05-30 08:02] VITALS: BP 100/56
[2017-05-30] MEDS: SENNA/DOCUSATE TABLET PO SCH (10:53)
[2017-05-30] MEDS: LORazepam 2 MG/ML, 1ML IVPush PRN ×2 (11:44→18:47)
[2017-05-30] MEDS: ENOXAPARIN 40 MG/0.4 ML SQ SCH (11:45)
[2017-05-30 13:58] VITALS: BP 96/55
[2017-05-30 19:17] VITALS: BP 104/62
[2017-05-30] MEDS: DAPTOMYCIN 320 MG in SODIUM CHLORIDE 0.9% 100 ML IV SCH (21:44)
[2017-05-31 01:56] VITALS: BP 99/55
[2017-05-31] MEDS: METHADONE 10 MG TABLET PO SCH ×3 (03:05→21:22)
[2017-05-31] MEDS: DIPHENHYDRAMINE 50 MG/ML, 1ML IVPush PRN ×3 (06:08→22:20)
[2017-05-31] MEDS: METOCLOPRAMIDE 5 MG/ML, 2ML IVPush SCH ×4 (06:10→23:36)
[2017-05-31] MEDS: LORazepam 2 MG/ML, 1ML IVPush PRN (06:11)
[2017-05-31 06:31] LABS: HEMATOCRIT 28.1 % (39.2-51.8); HEMOGLOBIN 9.6 g/dL (13.7-18.0); WHITE BLOOD COUNT 6.9 x10^3/uL (3.4-10)
[2017-05-31 06:39] LABS: ASPARTATE AMINO TRANSFERASE 32 U/L (15-37); BLOOD UREA NITROGEN 13 mg/dL (7-18)
[2017-05-31 07:34] VITALS: BP 100/56
[2017-05-31] MEDS: SENNA/DOCUSATE TABLET PO SCH (08:04)
[2017-05-31] MEDS: MEROPENEM 1 GM in SODIUM CHLORIDE 0.9% 100 ML IV SCH ×3 (08:07→23:37)
[2017-05-31] MEDS: OXYcodone IR 5MG TABLET PO PRN ×2 (08:12→18:10)
[2017-05-31] MEDS: ONDANSETRON 2MG/ML, 2ML IVPush PRN ×2 (08:12→18:10)
[2017-05-31] MEDS: ENOXAPARIN 40 MG/0.4 ML SQ SCH (11:12)
[2017-05-31 15:47] VITALS: BP 101/59
[2017-05-31 18:50] VITALS: BP 102/62
[2017-05-31] MEDS: DAPTOMYCIN 320 MG in SODIUM CHLORIDE 0.9% 100 ML IV SCH (22:20)
[2017-06-01 02:05] VITALS: BP 100/58
[2017-06-01] MEDS: OXYcodone IR 5MG TABLET PO PRN ×3 (04:14→16:51)
[2017-06-01] MEDS: DIPHENHYDRAMINE 50 MG/ML, 1ML IVPush PRN ×4 (04:17→22:58)
[2017-06-01] MEDS: METOCLOPRAMIDE 5 MG/ML, 2ML IVPush SCH ×4 (05:45→22:58)
[2017-06-01] MEDS: METHADONE 10 MG TABLET PO SCH ×3 (05:45→21:22)
[2017-06-01 08:31] VITALS: BP 95/58
[2017-06-01] MEDS: MEROPENEM 1 GM in SODIUM CHLORIDE 0.9% 100 ML IV SCH ×3 (08:46→22:58)
[2017-06-01] MEDS: SENNA/DOCUSATE TABLET PO SCH (10:37)
[2017-06-01] MEDS: ENOXAPARIN 40 MG/0.4 ML SQ SCH (13:27)
[2017-06-01 15:05] VITALS: BP 96/56
[2017-06-01 19:54] VITALS: BP 102/60
[2017-06-01] MEDS: OLANZAPINE 10 MG TABLET PO SCH (21:22)
[2017-06-01] MEDS: DAPTOMYCIN 320 MG in SODIUM CHLORIDE 0.9% 100 ML IV SCH (21:22)
[2017-06-02 01:31] VITALS: BP 98/55
[2017-06-02] MEDS: METOCLOPRAMIDE 5 MG/ML, 2ML IVPush SCH ×4 (04:40→23:44)
[2017-06-02] MEDS: METHADONE 10 MG TABLET PO SCH ×3 (05:38→21:57)
[2017-06-02] MEDS: MEROPENEM 1 GM in SODIUM CHLORIDE 0.9% 100 ML IV SCH ×4 (08:00→23:44)
[2017-06-02 08:28] VITALS: BP 95/53
[2017-06-02] MEDS: SENNA/DOCUSATE TABLET PO SCH (09:00)
[2017-06-02] MEDS: OXYcodone IR 5MG TABLET PO PRN ×2 (10:32→17:40)
[2017-06-02] MEDS: DIPHENHYDRAMINE 50 MG/ML, 1ML IVPush PRN ×3 (10:32→23:44)
[2017-06-02] MEDS: ENOXAPARIN 40 MG/0.4 ML SQ SCH (13:54)
[2017-06-02 15:57] VITALS: BP 95/54
[2017-06-02 17:40] VITALS: BP 101/65
[2017-06-02 18:29] VITALS: BP 95/52
[2017-06-02] MEDS: OLANZAPINE 10 MG TABLET PO SCH (21:57)
[2017-06-02] MEDS: DAPTOMYCIN 320 MG in SODIUM CHLORIDE 0.9% 100 ML IV SCH (22:36)
[2017-06-03 01:28] VITALS: BP 95/50
[2017-06-03] MEDS: METHADONE 10 MG TABLET PO SCH ×3 (05:18→21:30)
[2017-06-03] MEDS: METOCLOPRAMIDE 5 MG/ML, 2ML IVPush SCH ×4 (05:18→23:20)
[2017-06-03 07:22] VITALS: BP 103/57
[2017-06-03] MEDS: SENNA/DOCUSATE TABLET PO SCH (09:00)
[2017-06-03] MEDS: MEROPENEM 1 GM in SODIUM CHLORIDE 0.9% 100 ML IV SCH ×3 (09:39→23:20)
[2017-06-03] MEDS: OXYcodone IR 5MG TABLET PO PRN ×2 (09:40→17:39)
[2017-06-03] MEDS: DIPHENHYDRAMINE 50 MG/ML, 1ML IVPush PRN ×2 (12:27→20:50)
[2017-06-03] MEDS: ENOXAPARIN 40 MG/0.4 ML SQ SCH (12:28)
[2017-06-03 14:00] VITALS: BP 99/50
[2017-06-03 20:37] VITALS: BP 99/62
[2017-06-03] MEDS: DAPTOMYCIN 320 MG in SODIUM CHLORIDE 0.9% 100 ML IV SCH (21:29)
[2017-06-03] MEDS: OLANZAPINE 10 MG TABLET PO SCH (21:30)
[2017-06-04 01:50] VITALS: BP 98/57
[2017-06-04] MEDS: METOCLOPRAMIDE 5 MG/ML, 2ML IVPush SCH ×4 (05:34→22:07)
[2017-06-04] MEDS: METHADONE 10 MG TABLET PO SCH ×3 (05:34→22:07)
[2017-06-04 06:59] VITALS: BP 104/64
[2017-06-04] MEDS: MEROPENEM 1 GM in SODIUM CHLORIDE 0.9% 100 ML IV SCH ×3 (08:51→23:16)
[2017-06-04] MEDS: SENNA/DOCUSATE TABLET PO SCH (08:51)
[2017-06-04] MEDS: OXYcodone IR 5MG TABLET PO PRN ×2 (08:51→20:54)
[2017-06-04] MEDS: DIPHENHYDRAMINE 50 MG/ML, 1ML IVPush PRN ×2 (09:30→22:07)
[2017-06-04] MEDS: ENOXAPARIN 40 MG/0.4 ML SQ SCH (11:18)
[2017-06-04 13:51] VITALS: BP 104/63
[2017-06-04 19:38] VITALS: BP 132/74
[2017-06-04] MEDS: OLANZAPINE 10 MG TABLET PO SCH (20:54)
[2017-06-04] MEDS: DAPTOMYCIN 320 MG in SODIUM CHLORIDE 0.9% 100 ML IV SCH (22:19)
[2017-06-05 02:33] VITALS: BP 124/60
[2017-06-05] MEDS: METOCLOPRAMIDE 5 MG/ML, 2ML IVPush SCH ×4 (05:04→22:33)
[2017-06-05] MEDS: METHADONE 10 MG TABLET PO SCH ×3 (05:04→21:03)
[2017-06-05 06:59] VITALS: BP 103/65
[2017-06-05] MEDS: MEROPENEM 1 GM in SODIUM CHLORIDE 0.9% 100 ML IV SCH ×3 (07:20→22:34)
[2017-06-05] MEDS: SENNA/DOCUSATE TABLET PO SCH (09:00)
[2017-06-05] MEDS: ENOXAPARIN 40 MG/0.4 ML SQ SCH (11:11)
[2017-06-05] MEDS: OXYcodone IR 5MG TABLET PO PRN ×2 (11:12→20:38)
[2017-06-05] MEDS: DIPHENHYDRAMINE 50 MG/ML, 1ML IVPush PRN ×2 (11:12→20:38)
[2017-06-05 14:04] VITALS: BP 97/57
[2017-06-05 19:30] VITALS: BP 111/66
[2017-06-05] MEDS: OLANZAPINE 10 MG TABLET PO SCH (20:38)
[2017-06-05] MEDS: DAPTOMYCIN 320 MG in SODIUM CHLORIDE 0.9% 100 ML IV SCH (21:03)
[2017-06-06 01:53] VITALS: BP 106/61
[2017-06-06] MEDS: METOCLOPRAMIDE 5 MG/ML, 2ML IVPush SCH ×4 (05:03→23:29)
[2017-06-06] MEDS: METHADONE 10 MG TABLET PO SCH ×3 (05:03→21:32)
[2017-06-06 07:22] VITALS: BP 104/64
[2017-06-06] MEDS: MEROPENEM 1 GM in SODIUM CHLORIDE 0.9% 100 ML IV SCH ×3 (07:29→23:29)
[2017-06-06] MEDS: SENNA/DOCUSATE TABLET PO SCH (07:31)
[2017-06-06] MEDS: OXYcodone IR 5MG TABLET PO PRN ×3 (07:39→21:31)
[2017-06-06] MEDS: DIPHENHYDRAMINE 50 MG/ML, 1ML IVPush PRN ×3 (11:14→23:29)
[2017-06-06] MEDS: ONDANSETRON 2MG/ML, 2ML IVPush PRN ×3 (11:17→23:29)
[2017-06-06] MEDS: ENOXAPARIN 40 MG/0.4 ML SQ SCH (11:20)
[2017-06-06 14:00] VITALS: BP 103/58
[2017-06-06 19:40] VITALS: BP 114/64
[2017-06-06] MEDS: OLANZAPINE 10 MG TABLET PO SCH (21:31)
[2017-06-06] MEDS: DAPTOMYCIN 320 MG in SODIUM CHLORIDE 0.9% 100 ML IV SCH (21:42)
[2017-06-07 01:31] VITALS: BP 101/60
[2017-06-07] MEDS: OXYcodone IR 5MG TABLET PO PRN ×4 (04:10→23:35)
[2017-06-07] MEDS: METHADONE 10 MG TABLET PO SCH ×3 (05:52→21:40)
[2017-06-07] MEDS: METOCLOPRAMIDE 5 MG/ML, 2ML IVPush SCH ×4 (05:52→23:35)
[2017-06-07] MEDS: DIPHENHYDRAMINE 50 MG/ML, 1ML IVPush PRN ×4 (05:52→23:35)
[2017-06-07 06:11] LABS: HEMATOCRIT 31.1 % (39.2-51.8); HEMOGLOBIN 10.4 g/dL (13.7-18.0); WHITE BLOOD COUNT 5.6 x10^3/uL (3.4-10)
[2017-06-07 06:24] LABS: ASPARTATE AMINO TRANSFERASE 59 U/L (15-37); BLOOD UREA NITROGEN 19 mg/dL (7-18)
[2017-06-07] MEDS: MEROPENEM 1 GM in SODIUM CHLORIDE 0.9% 100 ML IV SCH ×3 (07:42→23:35)
[2017-06-07] MEDS: SENNA/DOCUSATE TABLET PO SCH (07:44)
[2017-06-07 08:00] VITALS: BP 107/63
[2017-06-07] MEDS ORDERED: OMNIPAQUE 350 MG/ML, 100ML BOTTLE ONE (10:38)
[2017-06-07] MEDS: ONDANSETRON 2MG/ML, 2ML IVPush PRN ×3 (11:39→23:35)
[2017-06-07] MEDS: ENOXAPARIN 40 MG/0.4 ML SQ SCH (11:39)
[2017-06-07 14:00] VITALS: BP_SYST 139; BP_SYST 99; BP_DIAS 59; BP_DIAS 77
[2017-06-07] MEDS ORDERED: MAGNESIUM CITRATE 300ML ORAL SOL PO ONE (18:00)
[2017-06-07 20:09] VITALS: BP 104/63
[2017-06-07] MEDS: DAPTOMYCIN 320 MG in SODIUM CHLORIDE 0.9% 100 ML IV SCH (21:40)
[2017-06-07] MEDS: OLANZAPINE 10 MG TABLET PO SCH (21:40)
[2017-06-08 00:30] VITALS: BP 103/57
[2017-06-08] MEDS: METOCLOPRAMIDE 5 MG/ML, 2ML IVPush SCH (05:40)
[2017-06-08] MEDS: ONDANSETRON 2MG/ML, 2ML IVPush PRN ×3 (05:40→18:02)
[2017-06-08] MEDS: OXYcodone IR 5MG TABLET PO PRN (05:40)
[2017-06-08] MEDS: METHADONE 10 MG TABLET PO SCH (05:40)
[2017-06-08] MEDS: DIPHENHYDRAMINE 50 MG/ML, 1ML IVPush PRN (05:40)
[2017-06-08] MEDS: MEROPENEM 1 GM in SODIUM CHLORIDE 0.9% 100 ML IV SCH (06:45)
[2017-06-08 08:39] VITALS: BP 108/60
[2017-06-08] MEDS: SENNA/DOCUSATE TABLET PO SCH (09:03)
[2017-06-08] MEDS: POLYETHYLENE GLYCOL 17 GM PACKET PO PRN (09:03)
[2017-06-08] MEDS: ENOXAPARIN 40 MG/0.4 ML SQ SCH (11:42)
[2017-06-08 13:11] VITALS: BP 114/61
[2017-06-08] MEDS: METOCLOPRAMIDE 5 MG/ML, 2ML IVPush PRN (18:02)
[2017-06-08 20:40] VITALS: BP 114/70
[2017-06-08] MEDS: METHADONE 5 MG TABLET PO SCH (21:29)
[2017-06-08] MEDS: OLANZAPINE 10 MG TABLET PO SCH (21:47)
[2017-06-09] MEDS: METOCLOPRAMIDE 5 MG/ML, 2ML IVPush PRN ×4 (00:21→18:32)
[2017-06-09] MEDS: ONDANSETRON 2MG/ML, 2ML IVPush PRN ×3 (00:21→12:24)
[2017-06-09 01:08] VITALS: BP 116/67
[2017-06-09 06:23] LABS: BLOOD UREA NITROGEN 17 mg/dL (7-18)
[2017-06-09 06:29] LABS: ASPARTATE AMINO TRANSFERASE 65 U/L (15-37)
[2017-06-09 06:59] VITALS: BP 112/71
[2017-06-09] MEDS: METHADONE 5 MG TABLET PO SCH ×2 (08:26→20:40)
[2017-06-09] MEDS: SENNA/DOCUSATE TABLET PO SCH (08:26)
[2017-06-09] MEDS: ENOXAPARIN 40 MG/0.4 ML SQ SCH (12:24)
[2017-06-09 12:45] LABS: HEMATOCRIT 32.8 % (39.2-51.8); HEMOGLOBIN 10.9 g/dL (13.7-18.0); WHITE BLOOD COUNT 5.8 x10^3/uL (3.4-10)
[2017-06-09 12:58] LABS: BLOOD UREA NITROGEN 19 mg/dL (7-18)
[2017-06-09 13:01] LABS: ASPARTATE AMINO TRANSFERASE 78 U/L (15-37)
[2017-06-09 13:16] VITALS: BP 109/78
[2017-06-09 18:55] VITALS: BP 106/62
[2017-06-09] MEDS: OLANZAPINE 10 MG TABLET PO SCH (20:40)
[2017-06-10 04:03] VITALS: BP 102/62
[2017-06-10] MEDS: METOCLOPRAMIDE 5 MG/ML, 2ML IVPush PRN ×2 (04:24→10:41)
[2017-06-10] MEDS: ONDANSETRON 2MG/ML, 2ML IVPush PRN ×2 (04:26→10:43)
[2017-06-10 04:49] LABS: BLOOD UREA NITROGEN 24 mg/dL (7-18)
[2017-06-10 04:53] LABS: ASPARTATE AMINO TRANSFERASE 69 U/L (15-37)
[2017-06-10] MEDS ORDERED: SENN1TAB7 PO (05:53)
[2017-06-10] MEDS ORDERED: METH5TAB2 PO (05:53)
[2017-06-10] MEDS ORDERED: BISA10SU65 PR (05:53)
[2017-06-10] MEDS ORDERED: CATHFLO-ALTEPLASE 2 MG/2 ML CATHFLUSH ONE (06:00)
[2017-06-10 07:50] VITALS: BP 110/68
[2017-06-10] MEDS: POLYETHYLENE GLYCOL 17 GM PACKET PO PRN (08:13)
[2017-06-10] MEDS: METHADONE 5 MG TABLET PO SCH (08:13)
[2017-06-10] MEDS: SENNA/DOCUSATE TABLET PO SCH (08:13)
== END 2017-06-10 12:20 | DRG 417 ==
LOC: ED 20:35 → EDIP 22:14 → 3NW 23:25 → 3NE 05-19 21:00
PROVIDERS: ADMIT Hospitalist; ATTEND Hospitalist
PROC: 0FT44ZZ Resection of Gallbladder, Percutaneous Endoscopic Approach (ICD-10-PCS; 2017-05-12)
PROC: 0T9B70Z Drainage of Bladder with Drainage Device, Via Natural or Artificial Opening (ICD-10-PCS; principal; 2017-05-13)
PROC: 0F7D8DZ Dilation of Pancreatic Duct with Intraluminal Device, Via Natural or Artificial Opening Endoscopic (ICD-10-PCS; 2017-05-17)
PROC: 0F798DZ Dilation of Common Bile Duct with Intraluminal Device, Via Natural or Artificial Opening Endoscopic (ICD-10-PCS; 2017-05-17)
PROC: 3E1M38Z Irrigation of Peritoneal Cavity using Irrigating Substance, Percutaneous Approach (ICD-10-PCS; 2017-05-19)
PROC: 02HV33Z Insertion of Infusion Device into Superior Vena Cava, Percutaneous Approach (ICD-10-PCS; 2017-05-23)
PROC: B5181ZA Fluoroscopy of Superior Vena Cava using Low Osmolar Contrast, Guidance (ICD-10-PCS; 2017-05-23)
PROC: B548ZZA Ultrasonography of Superior Vena Cava, Guidance (ICD-10-PCS; 2017-05-23)
DX: K80.61 Calculus of gallbladder and bile duct with cholecystitis, unspecified, with obstruction (principal); E43 Unspecified severe protein-calorie malnutrition; K65.1 Peritoneal abscess; M72.6 Necrotizing fasciitis; I96 Gangrene, not elsewhere classified; J18.9 Pneumonia, unspecified organism; J91.8 Pleural effusion in other conditions classified elsewhere; K65.3 Choleperitonitis; B15.9 Hepatitis A without hepatic coma; E87.1 Hypo-osmolality and hyponatremia; F11.20 Opioid dependence, uncomplicated; K56.7 Ileus, unspecified; K80.62 Calculus of gallbladder and bile duct with acute cholecystitis without obstruction; R18.8 Other ascites; D64.9 Anemia, unspecified; B18.2 Chronic viral hepatitis C; F19.10 Other psychoactive substance abuse, uncomplicated; F29 Unspecified psychosis not due to a substance or known physiological condition; F31.9 Bipolar disorder, unspecified; F43.10 Post-traumatic stress disorder, unspecified; K59.03 Drug induced constipation; K82.8 Other specified diseases of gallbladder; L29.9 Pruritus, unspecified; R33.9 Retention of urine, unspecified; T40.605A Adverse effect of unspecified narcotics, initial encounter; Z76.5 Malingerer [conscious simulation]; Z23 Encounter for immunization; Z88.8 Allergy status to other drugs, medicaments and biological substances; Z68.24 Body mass index [BMI] 24.0-24.9, adult; Z87.891 Personal history of nicotine dependence
CPT/HCPCS: 32555; 36415; 36569; 71010; 71020; 74000; 74020; 74177; 74178; 74181; 74330; 76700; 76937; 77001; 78226; 80048; 80053; 80076; 81001; 81003; 82550; 82565; 82945; 83615; 83690; 83735; 83986; 84100; 84157; 85025; 85651; 86140; 86703; 87040; 87070; 87075; 87077; 87102; 87116; 87176; 87186; 87205; 87206; 87522; 87899; 88304; 89051; 90632; 90746; 96365; 96375; C1729; J0171; J0744; J0878; J1100; J1170; J1644; J1650; J1885; J2020; J2185; J2250; J2405; J2543; J2704; J2710; J3010; J3370; J3490; Q9967; A9537; C1751; C1769; C1894; C2625; C9898; G0435; J0330; J1200; J2060; J2270; J2765; J7030; J7050; J7120; Q0163